=== PATIENT | female | born 1955 | race American Indian/Alaskan Native ===

== ENCOUNTER 2016-09-20 17:33 | Emergency (ER) | payer OTHER ==
--- NOTE | 2016-09-20 19:48 | Emergency Department Report ---
Entered by JUAN C BLACKMON, acting as scribe for TANIYA TSAI PA. Chief Complaint: Fall Stated Complaint: FALL/RT KNEE PAIN/ UPPER ABD PAIN - HPI History of Present Illness: 61 year old female presents to the ED for evaluation of right knee pain and abdominal pain s/p fall while running to catch bus today at 16:00. She states she landed on right knee. Denies N/V/D, acute chest pain, shortness of breath - ROS Review of Systems: Per HPI - Exam Vital Signs: Vital Signs 09/20/16 18:20 Temperature 98.6 F Pulse Rate 89 Respiratory 20 Rate Blood Pressure 222/110 O2 Sat by Pulse 98 Oximetry Physical Exam: GENERAL: Patient is in no acute distress. HEST/LUNGS: Clear to auscultation throughout. HEART/CARDIOVASCULAR: Regular rate and rhythm. No murmurs, rubs or gallops. EXTREMITY: Erythema to right anterior knee. Antalgic gait MSE screening note: Focused history and physical exam performed. Due to findings the following was ordered: chest pain protocol and X-ray of right knee ED Disposition for MSE Condition: Stable This documentation as recorded by the scribe,JUAN C BLACKMON,accurately reflects the service I personally performed and the decisions made by me,TANIYA TSAI PA.
[2016-09-20 21:14] LABS: Basophils % (Auto) 0.6 % (0.0-1.8); Eosinophils % (Auto) 0.7 % (0.0-4.3); Hematocrit 34.9 % (30.3-42.9); Hemoglobin 11.3 gm/dl (10.1-14.3); Mean Corpuscular HGB Conc 33 % (30-34); Mean Corpuscular Hemoglobin 29 pg (28-32); Mean Corpuscular Volume 90 fl (79-97); Platelet Count 194 K/mm3 (140-440); Red Blood Count 3.89 M/mm3 (3.65-5.03); Red Cell Distribution Width 13.3 % (13.2-15.2); White Blood Count 4.9 K/mm3 (4.5-11.0)
--- NOTE | 2016-09-20 21:43 | XRay Report ---
FINAL REPORT PROCEDURE: XR KNEE 3V RT TECHNIQUE: RIGHT knee radiographs, AP, lateral and oblique views. CPT 64507 HISTORY: Right knee pain after trauma. Fall. COMPARISON: No prior studies are available for comparison. FINDINGS: Fracture (s) and/or Dislocation(s): None . Alignment: Normal . Joint space(s): Normal . Soft tissues: Normal . Bone mineralization: Normal . Foreign bodies: None . IMPRESSION: There is no plain film evidence of fracture or dislocation..
[2016-09-20] MEDS ORDERED: NORCO 5/325 PO ONE (22:17)
[2016-09-20] MEDS ORDERED: CATAPRES PO ONE (22:17)
[2016-09-20] MEDS ORDERED: TORADOL IV ONE (22:18)
[2016-09-20 22:20] LABS: Anion Gap TNR mmol/L; Chloride TNR mmol/L (98-107)
[2016-09-20 22:21] LABS: Blood Urea Nitrogen TNR mg/dL (7-17); Carbon Dioxide TNR mmol/L (22-30); Potassium TNR mmol/L (3.6-5.0); Sodium TNR mmol/L (137-145)
[2016-09-20 22:22] LABS: BUN/Creatinine Ratio TNR; Calcium TNR mg/dL (8.4-10.2); Glucose TNR mg/dL (65-100)
[2016-09-20 22:49] LABS: Anion Gap 14 mmol/L; Blood Urea Nitrogen 21 mg/dL (7-17); Calcium 9.9 mg/dL (8.4-10.2); Carbon Dioxide 27 mmol/L (22-30); Chloride 101.2 mmol/L (98-107); Glucose 210 mg/dL (65-100); Potassium 3.6 mmol/L (3.6-5.0); Sodium 139 mmol/L (137-145)
--- NOTE | 2016-09-20 23:45 | Emergency Department Report ---
ED Fall HPI - General Chief Complaint: Fall Stated Complaint: FALL/RT KNEE PAIN/ UPPER ABD PAIN Source: patient Mode of arrival: Ambulatory Limitations: No Limitations - History of Present Illness Initial Comments: 61 yo female with a past medical history diabetes and hypertension presents to the hospital with complaints of fall injury. Patient tripped and fall while running after the bus. Complains of right knee, anterior chest pain, upper abdominal pain since the fall. She denies head injury or LOC. Patient states she has been compliant with a blood pressure medication and took her last pill today as well as her last diabetes medication. Pain pain overall is constant, aching, rated a 6/10 intensity, worse with palpation and movement. - Related Data Home Medications Medication Instructions Recorded Confirmed Last Taken Enalapril Maleate [Vasotec] 10 mg PO 09/20/16 Unknown Previous Rx's Medication Instructions Recorded Last Taken Type Cyproheptadine HCl 4 mg PO TID #60 tablet 09/21/16 Unknown Rx Enalapril Maleate [Vasotec] 10 mg PO DAILY #30 tablet 09/21/16 Unknown Rx Ibuprofen [Motrin] 400 mg PO Q8H PRN #30 tablet 09/21/16 Unknown Rx Insulin Aspart [Novolog Flexpen] 25 unit SQ BIDAC 30 Days 09/21/16 Unknown Rx traMADol [Ultram 50 MG tab] 50 mg PO Q6HR PRN #20 tablet 09/21/16 Unknown Rx Allergies Allergy/AdvReac Type Severity Reaction Status Date / Time Penicillins Allergy Rash Verified 09/20/16 18:24 ED Review of Systems ROS: Stated complaint: FALL/RT KNEE PAIN/ UPPER ABD PAIN Other details as noted in HPI Comment: All other systems reviewed and negative Other: Constitutional: No fevers chills Eyes: No eye pain visual changes ENT: No ear pain or throat pain Neck: Denies pain Respiratory: Denies cough wheezing shortness of breath Cardiovascular: Denies palpitations, syncope GI: Denies nausea, vomiting, diarrhea : Denies dysuria Musculoskeletal: as per hpi Skin: Denies rash, lesions, erythema Neurologic: Denies headache, numbness, weakness Psychiatric: Denies suicidal ideation, hallucinations ED Past Medical Hx - Past Medical History Hx Hypertension: Yes Hx Diabetes: Yes - Surgical History Additional Surgical History: TUBAL LIGATION - Social History Smoking Status: Never Smoker Substance Use Type: None - Medications Home Medications: Home Medications Medication Instructions Recorded Confirmed Last Taken Type Enalapril Maleate [Vasotec] 10 mg PO 09/20/16 Unknown History Cyproheptadine HCl 4 mg PO TID #60 tablet 09/21/16 Unknown Rx Enalapril Maleate [Vasotec] 10 mg PO DAILY #30 tablet 09/21/16 Unknown Rx Ibuprofen [Motrin] 400 mg PO Q8H PRN #30 tablet 09/21/16 Unknown Rx Insulin Aspart [Novolog Flexpen] 25 unit SQ BIDAC 30 Days 09/21/16 Unknown Rx traMADol [Ultram 50 MG tab] 50 mg PO Q6HR PRN #20 tablet 09/21/16 Unknown Rx ED Physical Exam - General Limitations: No Limitations, Language Barrier - Other Other exam information: General: No limitations, patient is alert in no acute distress Head exam: Atraumatic, normocephalic Eyes exam: Normal appearance ENT: Moist mucous membrane, normal oropharynx Neck exam: Normal inspection, full range of motion Respiratory exam: Clear to auscultation bilateral, no wheezes, rales, crackles Cardiovascular: Normal rate and rhythm, reproducible anterior chest wall tenderness Abdomen: Soft, nondistended, and nontender, with normal bowel sounds, no rebound, or guarding Extremity: Denies right anterior knee pain with palpation. Limited motion secondary to pain. No deformity. Back: Normal Inspection, full range of motion, no tenderness Neurologic: Alert, oriented x3, cranial nerves intact, no motor or sensory deficit Psychiatric: normal affect, normal mood Skin: Warm, dry, intact ED Course Vital Signs 09/20/16 09/20/16 09/20/16 18:20 22:03 22:08 Temperature 98.6 F Pulse Rate 89 77 Respiratory 20 14 Rate Blood Pressure 222/110 Blood Pressure 207/92 [Right] O2 Sat by Pulse 98 98 Oximetry 09/20/16 09/20/16 09/20/16 22:11 22:21 22:30 Temperature Pulse Rate 81 78 72 Respiratory 10 L 12 16 Rate Blood Pressure 207/94 200/105 209/106 Blood Pressure [Right] O2 Sat by Pulse 99 99 98 Oximetry 09/20/16 09/20/16 09/20/16 22:41 22:51 23:00 Temperature Pulse Rate 71 80 88 Respiratory 16 22 16 Rate Blood Pressure 209/106 213/103 167/83 Blood Pressure [Right] O2 Sat by Pulse 98 99 98 Oximetry 09/20/16 09/20/16 23:11 23:21 Temperature Pulse Rate 77 71 Respiratory 15 16 Rate Blood Pressure 209/106 146/71 Blood Pressure [Right] O2 Sat by Pulse 98 99 Oximetry - Reevaluation(s) Reevaluation #1: 09/20/16 23:54 Patient's blood pressure improved with clonidine. Posterior disc in the 60s with insulin. Patient given food. [place] and Toradol given for pain ED Medical Decision Making - Lab Data Result diagrams: 09/20/16 19:45 09/20/16 21:41 Lab Results 09/20/16 09/20/16 09/20/16 Range/Units 19:45 19:45 21:41 WBC 4.9 (4.5-11.0) K/mm3 RBC 3.89 (3.65-5.03) M/mm3 Hgb 11.3 (10.1-14.3) gm/dl Hct 34.9 (30.3-42.9) % MCV 90 (79-97) fl MCH 29 (28-32) pg MCHC 33 (30-34) % RDW 13.3 (13.2-15.2) % Plt Count 194 (140-440) K/mm3 Lymph % (Auto) 29.7 (13.4-35.0) % [place] % (Auto) 5.3 (0.0-7.3) % Eos % (Auto) 0.7 (0.0-4.3) % Baso % (Auto) 0.6 (0.0-1.8) % Lymph # 1.5 (1.2-5.4) K/mm3 [place] # 0.3 (0.0-0.8) K/mm3 Eos # 0.0 (0.0-0.4) K/mm3 Baso # 0.0 (0.0-0.1) K/mm3 Seg Neutrophils % 63.7 (40.0-70.0) % Seg Neutrophils # 3.1 (1.8-7.7) K/mm3 Sodium TNR 139 Potassium TNR 3.6 Chloride TNR 101.2 Carbon Dioxide TNR 27 Anion Gap TNR 14 BUN TNR 21 H Creatinine TNR 0.6 L Estimated GFR TNR > 60 BUN/Creatinine Ratio TNR 35.00 Glucose TNR 210 H Calcium TNR 9.9 Troponin T TNR - Radiology Data Radiology results: report reviewed (right knee x-ray: No fxrt or dislocation) - Medical Decision Making Patient placed in a knee immobilizer and crutches. Meds will be prescribed for pain. Refill of her current medication will be provided as requested. Patient has anterior chest wall tenderness. likey secondary to chest wall contusion Patient thinks she is on NovoLog 25 units twice a day. Also on Ciproheptadine appetite stimulant since dose unknown I will start ar 2 mg 4 times a day - Differential Diagnosis fxt, contusion, sprain,htn emergency Critical Care Time: No Critical care attestation.: If time is entered above; I have spent that time in minutes in the direct care of this critically ill patient, excluding procedure time. ED Disposition Clinical Impression: Contusion, chest wall, Uncontrolled hypertension, Contusion of left knee, Diabetes, Medication refill Disposition: DISCHARGED TO HOME OR SELFCARE Is pt being admited?: No Does the pt Need Aspirin: No Condition: Stable Instructions: Knee Sprain (ED), Diabetes Mellitus Type 2 in Adults (ED), Hypertension (ED), Thoracic Pain (ED) Additional Instructions: Take the medication as prescribed. Follow-up with the orthopedic doctor and primary care doctor/clinic provided. Return if symptoms worsen. Prescriptions: Cyproheptadine HCl 4 mg PO TID #60 tablet Enalapril Maleate [Vasotec] 10 mg PO DAILY #30 tablet Ibuprofen [Motrin] 400 mg PO Q8H PRN #30 tablet PRN Reason: Pain Insulin Aspart [Novolog Flexpen] 25 unit SQ BIDAC 30 Days traMADol [Ultram 50 MG tab] 50 mg PO Q6HR PRN #20 tablet PRN Reason: Pain Referrals: [facility] [Provider Group] - 3-5 Days JOVAN RODRIGUEZ MD [Staff Physician] - 3-5 Days (Orthopedic doctor) SHERRI ROSADO MD [Staff Physician] - 3-5 Days (Primary care doctor) Time of Disposition: 23:59
[2016-09-21 00:15] VITALS: BP 145/72
== END 2016-09-21 00:42 | disposition home or self-care (01) ==
LOC: ED 17:33
DX: S80.02XA Contusion of left knee, initial encounter (principal); S20.219A Contusion of unspecified front wall of thorax, initial encounter; I10 Essential (primary) hypertension; E11.9 Type 2 diabetes mellitus without complications; Z98.51 Tubal ligation status; Z88.0 Allergy status to penicillin; W01.0XXA Fall on same level from slipping, tripping and stumbling without subsequent striking against object, initial encounter; Y93.02 Activity, running; Y99.8 Other external cause status; Y92.89 Other specified places as the place of occurrence of the external cause
CPT/HCPCS: 29505; 36415; 73562; 80048; 82962; 85025; 93005; 93010; 96374; 96375; 99285; J1885; J1815